=== PATIENT | male | born 1985 | race American Indian/Alaskan Native ===

== ENCOUNTER 2018-07-18 09:09 | Emergency (ER) | payer OTHER ==
[2018-07-18 09:36] VITALS: BP 129/87; PULSE 50; RESP 18; TEMP 98.3; O2SAT 99; BMI 33.0
--- NOTE | 2018-07-18 10:17 | ED PDOC ---
Arrival/HPI - General Chief Complaint: Eye Problem Time Seen by Provider: 07/18/18 09:26 Historian: Patient - History of Present Illness Narrative History of Present Illness (Text): 07/18/18 10:13 32-year-old male presents today with pain to the lower eyelid along the medial aspect. Patient states he has had this pain for a few days. Patient states is been irritating the eye. He denies blurred vision. No medications have been taken at home. Patient's girlfriend thinks he has a stye. No other complaints Past Medical History - Provider Review Nursing Documentation Reviewed: Yes - Travel History Have you recently traveled outside [place] w/in the past 3 mons?: No - Psychiatric Hx Substance Use: No - Anesthesia Hx Anesthesia: No Hx Anesthesia Reactions: No Hx Malignant Hyperthermia: No Family/Social History - Physician Review Nursing Documentation Reviewed: Yes Family/Social History: Unknown Family HX Smoking Status: Current Some Days Smoker Hx Alcohol Use: Yes Frequency of alcohol use: Socially Hx Substance Use: No Allergies/Home Meds Allergies/Adverse Reactions: Allergies No Known Allergies Allergy (Verified 07/18/18 09:40) Review of Systems - Review of Systems Constitutional: absent: Fatigue, Fevers Eyes: Other (left lower eyelid swelling and pain). absent: Vision Changes, Photophobia ENT: absent: Sore Throat, Sinus Congestion Respiratory: absent: SOB, Cough Cardiovascular: absent: Chest Pain, Palpitations Gastrointestinal: absent: Abdominal Pain Genitourinary Male: absent: Dysuria Musculoskeletal: absent: Arthralgias Skin: Pruritis Psychiatric: absent: Anxiety, Depression Physical Exam Vital Signs Reviewed: Yes Vital Signs Temp Pulse Resp BP Pulse Ox 07/18/18 09:09 98.3 F 50 L 18 129/87 99 Temperature: Afebrile Blood Pressure: Normal Pulse: Regular Respiratory Rate: Normal Appearance: Positive for: Well-Appearing, Non-Toxic, Comfortable Pain Distress: None Mental Status: Positive for: Alert and Oriented X 3 - Systems Exam Head: Present: Atraumatic, Other (left eye; there is minimal swelling noted to the left lower eyelid with tenderness along the medial aspect of the eyelid with small stye noted. ) Pupils: Present: PERRL Extroacular Muscles: Present: EOMI Conjunctiva: Present: Normal. No: Injected Ears: Present: Normal, NORMAL TM Mouth: Present: Moist Mucous Membranes Pharnyx: Present: Normal Neck: Present: Normal Range of Motion Respiratory/Chest: Present: Clear to Auscultation, Good Air Exchange. No: Respiratory Distress, Accessory Muscle Use Cardiovascular: Present: Regular Rate and Rhythm, Normal S1, S2. No: Murmurs Neurological: Present: GCS=15, Speech Normal Skin: Present: Warm, Dry, Normal Color Psychiatric: Present: Alert, Oriented x 3 Medical Decision Making ED Course and Treatment: 07/18/18 10:15 Patient is nontoxic well appearing in no distress Patient with a small stye to the medial aspect of the left lower eyelid. No conjunctival injection noted, PERRLA, extraocular muscles intact Patient was advised to do warm compresses and apply antibiotic ointment to the affected eye 3 times daily. Patient was advised to return if symptoms worsen persist or if new concerning symptoms develop. Patient was advised to follow-up with the eye doctor. Patient verbalizes understanding of discharge instructions and need for immediate followup. All aspects of this case were discussed the attending of record. Impression: Hordeolum Tobrex: Apply 3 times daily to the affected eye Warm compresses frequently Followup with the eye doctor within the next 2 days Return immediately if symptoms worsen persist or if new symptoms develop; blurry vision, worsening eye pain, worsening redness or any other concerning symptoms develop. Follow up with her primary care physician within the next 2 days Disposition/Present on Arrival - Present on Arrival Any Indicators Present on Arrival: No History of DVT/PE: No History of Uncontrolled Diabetes: No Urinary Catheter: No History of Decub. Ulcer: No History Surgical Site Infection Following: None - Disposition Have Diagnosis and Disposition been Completed?: Yes Diagnosis: Hordeolum Disposition: HOME/ ROUTINE Disposition Time: 10:00 Patient Plan: Discharge Condition: GOOD Discharge Instructions (ExitCare): Stye (Hordeolum) Additional Instructions: Tobrex: Apply 3 times daily to the affected eye Warm compresses frequently Followup with the eye doctor within the next 2 days Return immediately if symptoms worsen persist or if new symptoms develop; blurry vision, worsening eye pain, worsening redness or any other concerning symptoms develop. Follow up with her primary care physician within the next 2 days Prescriptions: Tobramycin 0.3% [Tobrex 0.3% Ophth Oint] 1 appl OS TID #1 tube Referrals: Xavier Wells MD [Staff Provider] - Follow up with primary [facility] [Outside] - Follow up with primary Gabbi Valderrama MD [Medical Doctor] - Follow up with primary Forms: [employer] ([place]), WORK NOTE
== END 2018-07-18 10:41 | disposition home or self-care (01) ==
LOC: ED 09:09
DX: H00.015 Hordeolum externum left lower eyelid (principal)